=== PATIENT | male | born 1995 | race Caucasian/White ===

== ENCOUNTER 2018-03-29 04:16 | Emergency (ER) | payer BC ==
[2018-03-29 04:17] VITALS: TEMP 97
[2018-03-29 04:39] LABS: ALBUMIN 4.9 gm/dL (3.5-5.0); BILIRUBIN,TOTAL 0.3 mg/dL (0.0-1.0); CALCIUM 8.9 mg/dL (8.4-10.2); CREATININE, serum 0.97 mg/dL (0.66-1.25); POTASSIUM 3.9 mmol/L (3.4-5.0); TOTAL PROTEIN 8.2 gm/dL (6.4-8.2)
[2018-03-29 08:30] VITALS: BP 100/61; PULSE 90
== END 2018-03-29 09:01 | disposition home or self-care (01) ==
LOC: COL.ER 04:16
PROVIDERS: Emergency Medicine
DX: F10.129 Alcohol abuse with intoxication, unspecified (principal); Y90.8 Blood alcohol level of 240 mg/100 ml or more
CPT/HCPCS: J2405; J7030

== ENCOUNTER → 2018-08-22 | Outpatient (CLI) | payer OTHER ==
[2018-08-22 17:14] LABS: COLLECTION METHOD CLEAN CATCH
[2018-08-22 17:24] LABS: MUCOUS Present /lpf; PH 5 (5-8); SQUAMOUS EPITHELIAL 0-2 /hpf; URINE APPEARANCE Hazy; URINE BACTERIA None Seen /hpf; URINE BILIRUBIN Negative (NEGATIVE); URINE BLOOD 1+ (NEGATIVE); URINE COLOR Yellow; URINE GLUCOSE Negative (NEGATIVE); URINE KETONE Negative (NEGATIVE); URINE LEUKOCYTE ESTERASE Negative (NEGATIVE); URINE NITRATE Negative (NEGATIVE); URINE PROTEIN(semi-quant) Negative (NEGATIVE); URINE RBC 0-2 /hpf; URINE UROBILINOGEN Negative (NEGATIVE)
== END ==
LOC: ZCOL.LAB 16:33
PROVIDERS: Family Medicine
DX: R30.0 Dysuria (principal)

== ENCOUNTER 2019-04-21 09:51 | Emergency (ER) | payer OTHER ==
[~2019-04-21] VITALS: Ht 177.8 cm; Wt 79.5 kg
[2019-04-21] MEDS ORDERED: TAMIFLU 75MG75 MG PO (10:13)
[2019-04-21 10:22] VITALS: BP 133/72; PULSE 69; TEMP 98.2
== END 2019-04-21 10:22 | disposition home or self-care (01) ==
LOC: COL.ER 09:51
DX: J11.1 Influenza due to unidentified influenza virus with other respiratory manifestations (principal)